=== PATIENT | female | born 1955 | race Two or more races ===

== ENCOUNTER 2022-06-20 11:44 | Inpatient (IN) | payer MEDICARE, MEDICAID ==
[~2022-06-20] VITALS: Ht 167.6 cm; Wt 104.4 kg
[2022-06-20 12:56] LABS: Basophils # (auto) 0.1 10 ^3/uL (0-0.2); Basophils % (auto) 1.5 % (0.0-2.0); Eosinophils # (auto) 0.2 10 ^3/uL (0-0.8); Eosinophils % (auto) 2.3 % (0.0-7.0); Hematocrit 46.9 % (36.0-46.0); Hemoglobin 16.1 g/dL (12.2-16.2); Lymphocytes # (auto) 1.1 10 ^3/uL (0.4-5.4); Lymphocytes % (auto) 15.9 % (10.0-50.0); Mean Corpuscular Hemoglobin 32.2 pg (28.0-32.0); Mean Corpuscular Hgb Conc. 34.3 g/dL (32.0-36.0); Monocytes # (auto) 0.6 10 ^3/uL (0-1.3); Monocytes % (auto) 8.1 % (0.0-12.0); Neutrophils # (auto) 5.1 10 ^3/uL (1.6-8.6); Neutrophils % (auto) 72.2 % (37.0-80.0); Red Blood Cells 4.98 10^6/uL (4.0-5.20); Red Cell Distribution Width 13.5 % (11.8-14.3); White Blood Cell 7.1 10^3/uL (4.4-10.8)
[2022-06-20 13:14] LABS: Albumin 3.7 g/dL (3.4-5.0); Calcium 9.6 mg/dL (8.5-10.1); Potassium 4.4 mmol/L (3.5-5.1)
[2022-06-20 13:17] LABS: BUN/Creatinine Ratio 19.2; Bilirubin, Total 0.9 mg/dL (0.2-1.0); Total Protein 7.3 g/dL (6.4-8.2)
[2022-06-20 13:59] LABS: Urine Bacteria NONE SEEN /hpf (None Seen); Urine Blood TRACE /uL (Negative); Urine Specific Gravity 1.016 (1.001-1.035); Urine WBC 5 /hpf (0 - 5)
[2022-06-20] MEDS ORDERED: NITROFURANTOIN 100 mg CAP PO ONE (14:15)
[2022-06-20] MEDS ORDERED: cefTRIAXone 1GM/50ML D5W 50 ML IV ONE (18:15)
[2022-06-20] MEDS ORDERED: NITROGLYCERIN 0.4 MG SL TAB SL PRN (18:15)
[2022-06-20] MEDS ORDERED: MORPHINE SULFATE INJ 2 MG/ml SYRG IV PRN (18:15)
[2022-06-20] MEDS ORDERED: DEXTROSE (50%) 50ML SYRG IV PRN (18:30)
[2022-06-20 19:26] LABS: Cholesterol 139 mg/dL (< 200); HDL Cholesterol 52 mg/dL (40-59); LDL Cholesterol 75 mg/dL (< 100); Triglycerides 116 mg/dL (< 150)
[2022-06-20] MEDS: ACCU-CHEK COMFORT CURVE STRIP VI SCH (23:43)
[2022-06-20] MEDS: InsuLIN REG 1unit/0.01ml Soln (100units/ml) SC SCH (23:46)
[2022-06-21 02:53] VITALS: BP 107/54
[2022-06-21 05:27] VITALS: BP 107/54
[2022-06-21] MEDS: ACCU-CHEK COMFORT CURVE STRIP VI SCH ×4 (06:27→21:29)
[2022-06-21] MEDS: InsuLIN REG 1unit/0.01ml Soln (100units/ml) SC SCH ×4 (06:27→21:30)
[2022-06-21 09:00] VITALS: BP 127/58
[2022-06-21] MEDS: cefTRIAXone 1GM/50ML D5W 50 ML IV SCH (09:30)
[2022-06-21 13:00] VITALS: BP 135/70
[2022-06-21 17:00] VITALS: BP 119/78
[2022-06-21 22:00] VITALS: BP 103/52
[2022-06-21 23:39] LABS: Free T4 (Free Thyroxine) 0.97 ng/dL (0.89-1.76)
[2022-06-21 23:40] LABS: Folate (Folic Acid) 14.9 ng/mL (5.38-24)
[2022-06-22 05:00] VITALS: BP 99/47
[2022-06-22] MEDS: ACCU-CHEK COMFORT CURVE STRIP VI SCH ×4 (05:36→21:14)
[2022-06-22] MEDS: InsuLIN REG 1unit/0.01ml Soln (100units/ml) SC SCH ×4 (05:36→21:17)
[2022-06-22 07:13] LABS: Potassium 4.2 mmol/L (3.5-5.1)
[2022-06-22 07:18] LABS: Free T4 (Free Thyroxine) 0.98 ng/dL (0.89-1.76)
[2022-06-22 07:19] LABS: BUN/Creatinine Ratio 30.9; Folate (Folic Acid) 9.37 ng/mL (5.38-24); Magnesium 2.2 mg/dL (1.6-2.6); Phosphorus 3.3 mg/dL (2.5-4.90)
[2022-06-22] MEDS ORDERED: ADENOSINE 89 MG in GIVE UN-DILUTED 0 ML IV ONE (08:30)
[2022-06-22 09:00] VITALS: BP 133/54
[2022-06-22] MEDS ORDERED: ASPI-543 PO (09:23)
[2022-06-22] MEDS ORDERED: ATOR20TA PO (09:23)
[2022-06-22] MEDS ORDERED: METO1TAB77 PO (09:23)
[2022-06-22] MEDS ORDERED: LOSA25TA38 PO (09:23)
[2022-06-22] MEDS: cefTRIAXone 1GM/50ML D5W 50 ML IV SCH (11:29)
[2022-06-22 13:00] VITALS: BP 123/62
[2022-06-22] MEDS ORDERED: CYANOCOBALAMIN (B-12) 1000 MCG/1 ML VIAL IM ONE (15:00)
[2022-06-22] MEDS ORDERED: ERGOCALCIFEROL 50,000 UNIT(1.25MG) CAP PO SCH (15:00)
[2022-06-22] MEDS ORDERED: LACTULOSE 20Gm/30ML SOLN PO PRN (15:15)
[2022-06-22 16:36] VITALS: BP 119/62
[2022-06-22] MEDS ORDERED: ACETAMINOPHEN 500 MG TAB PO ONE (21:00)
[2022-06-22 22:00] VITALS: BP 111/50
[2022-06-23 05:00] VITALS: BP 107/51
[2022-06-23] MEDS: ACCU-CHEK COMFORT CURVE STRIP VI SCH ×2 (07:00→11:10)
[2022-06-23] MEDS: InsuLIN REG 1unit/0.01ml Soln (100units/ml) SC SCH ×2 (07:00→11:10)
[2022-06-23 07:07] LABS: RPR Non Reactive (Non Reactive)
[2022-06-23 08:50] VITALS: BP 107/51
[2022-06-23] MEDS: cefTRIAXone 1GM/50ML D5W 50 ML IV SCH (08:57)
[2022-06-23] MEDS ORDERED: CYANOCOBALAMIN (B-12) 1000 MCG/1 ML VIAL IM SCH (10:00)
[2022-06-23] MEDS ORDERED: CYAN1TAB14 PO (16:09)
[2022-06-23] MEDS ORDERED: ERGO1CAP23 PO (16:09)
[2022-06-23 16:10] VITALS: BP 125/61
[2022-06-23 16:58] VITALS: BP 103/53
== END 2022-06-23 17:41 | disposition home or self-care (01) | DRG 74 ==
LOC: ER 11:44 → TELE 18:15 → TELE-WESTW 06-21 02:32
PROVIDERS: ADMIT Registered Nurse; ATTEND Internal Medicine
DX: G90.8 Other disorders of autonomic nervous system (principal); G45.9 Transient cerebral ischemic attack, unspecified; N30.00 Acute cystitis without hematuria; G80.9 Cerebral palsy, unspecified; E66.01 Morbid (severe) obesity due to excess calories; F79 Unspecified intellectual disabilities; E11.9 Type 2 diabetes mellitus without complications; E78.5 Hyperlipidemia, unspecified; E55.9 Vitamin D deficiency, unspecified; K59.00 Constipation, unspecified; Z79.82 Long term (current) use of aspirin; Z86.73 Personal history of transient ischemic attack (TIA), and cerebral infarction without residual deficits; Z79.899 Other long term (current) drug therapy; Z82.49 Family history of ischemic heart disease and other diseases of the circulatory system; Z83.3 Family history of diabetes mellitus; Z68.37 Body mass index [BMI] 37.0-37.9, adult
CPT/HCPCS: 36415; 70450; 70551; 80048; 80053; 80061; 81001; 82306; 82607; 82746; 82962; 83036; 83735; 84100; 84439; 84443; 84484; 85025; 86592; 87040; 87086; 87088; 87186; 87426; 93005; 93017; 93306; 93886; G0378; J0153; J0696; J1815

== ENCOUNTER → 2023-03-07 | Day surgery (SDC) | payer OTHER, MEDICAID ==
[2023-03-02 12:08] LABS: Basophils # (auto) 0 10 ^3/uL (0-0.2); Basophils % (auto) 0.6 % (0.0-2.0); Eosinophils # (auto) 0.2 10 ^3/uL (0-0.8); Eosinophils % (auto) 2.4 % (0.0-7.0); Hematocrit 46.9 % (36.0-46.0); Hemoglobin 15.8 g/dL (12.2-16.2); Lymphocytes # (auto) 1.7 10 ^3/uL (0.4-5.4); Lymphocytes % (auto) 22.7 % (10.0-50.0); Mean Corpuscular Hemoglobin 31.7 pg (28.0-32.0); Mean Corpuscular Hgb Conc. 33.7 g/dL (32.0-36.0); Monocytes # (auto) 0.6 10 ^3/uL (0-1.3); Monocytes % (auto) 7.7 % (0.0-12.0); Neutrophils # (auto) 5.1 10 ^3/uL (1.6-8.6); Neutrophils % (auto) 66.6 % (37.0-80.0); Nucleated Red Blood Cells % 0.2 %; Red Blood Cells 4.98 10^6/uL (4.0-5.20); Red Cell Distribution Width 13.2 % (11.8-14.3); White Blood Cell 7.7 10^3/uL (4.4-10.8)
[2023-03-02 12:15] LABS: Urine Amorphous Crystal FEW /hpf (None Seen); Urine Bacteria NONE SEEN /hpf (None Seen); Urine Blood Negative /uL (Negative); Urine Mucus FEW (None Seen); Urine Specific Gravity 1.016 (1.001-1.035); Urine WBC 21 /hpf (0 - 5)
[2023-03-02 12:23] LABS: INR 1.07 (0.9-1.15); Partial Thromboplastin Time 26.2 SEC (24.5-34.5)
[2023-03-02 12:57] LABS: Albumin 3.9 g/dL (3.4-5.0); Calcium 9.3 mg/dL (8.5-10.1); Potassium 4.2 mmol/L (3.5-5.1)
[2023-03-02 13:01] LABS: BUN/Creatinine Ratio 25.6 (10.0-20.0); Total Protein 7.9 g/dL (6.4-8.2)
[~2023-03-07] VITALS: Ht 167.6 cm; Wt 101.6 kg
[~2023-03-07] MED LIST: ACCU-CHEK COMFORT CURVE STRIP VI ONE; ASPI-543 PO; ATOR20TA PO; CYAN1TAB14 PO; DAKINS HALF STR 0.25% (NaHypochlorite) 473 ML TOPICAL SOL TOP ONE; ERGO1CAP23 PO; HYDROmorphone HCL 2 MG/ML VL/or syr IV PRN; LOSA25TA15 PO; METO1TAB77 PO; METOCLOPRAMIDE HCL 5MG/ml INJ 2ml VIAL IV PRN; MIDAZOLAM HCL 2MG/2ML 2ml VIAL (1mg/ml) ONE; MORPHINE SULFATE INJ 2 MG/ml SYRG IV PRN; ONDANSETRON HCL 4 MG/2 ML VIAL ONE; PROPOFOL 10 MG/ML 20 ML IV ONE; SODIUM CHLORIDE LOCK 10 ML ONE; ceFAZolin 1GM/50ML 100 ML IV ONE; fentaNYL CITRATE 100 MCG/2 ML VL ONE
[2023-03-07 10:36] VITALS: TEMP 97.8; O2SAT 97
[2023-03-07 11:12] VITALS: BP 113/52; PULSE 82; RESP 16; O2SAT 93
== END | disposition home or self-care (01) ==
LOC: SUR 07:34
PROVIDERS: ATTEND Podiatrist
DX: M20.42 Other hammer toe(s) (acquired), left foot (principal); E11.9 Type 2 diabetes mellitus without complications; I10 Essential (primary) hypertension; E78.5 Hyperlipidemia, unspecified; Z79.82 Long term (current) use of aspirin; Z79.899 Other long term (current) drug therapy
CPT/HCPCS: 28820; 36415; 80053; 81001; 82962; 85025; 85610; 85730; J0690; J2250; J2405; J2704; J3010